=== PATIENT | female | born 1980 | race Two or more races ===

== ENCOUNTER 2022-04-02 10:11 | Inpatient (IN) | payer OTHER ==
[~2022-04-02] VITALS: Ht 165.1 cm; Wt 62.6 kg
== END 2022-04-05 07:17 | disposition home or self-care (01) | DRG 392 ==
LOC: ER 10:11 → MEDJ 16:52
PROVIDERS: ADMIT Internal Medicine; ATTEND Internal Medicine
PROC: BW21YZZ Computerized Tomography (CT Scan) of Abdomen and Pelvis using Other Contrast (ICD-10-PCS; principal; 2022-04-02)
DX: K52.89 Other specified noninfective gastroenteritis and colitis (principal); Z20.822 Contact with and (suspected) exposure to COVID-19

== ENCOUNTER 2024-03-13 10:54 | Emergency (ER) | payer OTHER ==
[~2024-03-13] VITALS: Ht 165.1 cm; Wt 65.3 kg
[2024-03-13 11:23] VITALS: BP 121/74; O2SAT 100
[2024-03-13 13:00] LABS: HEMATOCRIT 41.7 % (36.0-45.00); HEMOGLOBIN 14.2 g/dL (12.0-15.00); MEAN CELL VOLUME 86.6 fL (80.00-100.00); MEAN CORPUSCULAR HEMOGLOBIN 29.5 pg (27.00-32.0); PLATELET COUNT 255 K/uL (150-450); RED BLOOD COUNT 4.81 M/uL (4.00-6.00); RED CELL DISTRIBUTION WIDTH 12.6 % (11.5-14.5)
[2024-03-13 13:20] LABS: CREATININE SERUM 0.88 mg/dL (0.55-1.02); GFR 69.49; POTASSIUM 4.23 mEq/L (3.5-5.1)
[2024-03-13 13:36] LABS: PH,URINE 6.5 (5.0-8.0); URINE APPEARANCE Clear; URINE BILIRRUBIN Negative (NEGATIVE); URINE BLOOD Small; URINE COLOR Yellow; URINE GLUCOSE Negative (NEGATIVE); URINE KETONE Negative (NEGATIVE); URINE LEUKOCYTE Negative; URINE NITRATE Negative; URINE PROTEIN Negative (NEGATIVE); URINE UROBILINOGEN 0.2 E.U./dl
[2024-03-13 13:37] LABS: URINE EPITHELIAL CELLS 3.2 uL (0.0-38.8); URINE RBC 36.1 uL (0.0-20.8)
[2024-03-13 13:51] LABS: URINE WBC 0.6 uL (0.0-23.2)
== END 2024-03-13 14:56 | disposition home or self-care (01) ==
LOC: ER 10:55
PROVIDERS: General Practice
DX: N39.0 Urinary tract infection, site not specified (principal); Z88.8 Allergy status to other drugs, medicaments and biological substances; Z88.0 Allergy status to penicillin